=== PATIENT | male | born 1990 | race Caucasian/White ===

== ENCOUNTER 2022-01-29 10:55 | Emergency (ER) | payer SELFPAY | END 2022-01-29 13:20 | disposition left against medical advice (07) | LOC: ER1 10:55 | DX: T50.901A Poisoning by unspecified drugs, medicaments and biological substances, accidental (unintentional), initial encounter (principal); F17.200 Nicotine dependence, unspecified, uncomplicated; F19.11 Other psychoactive substance abuse, in remission | CPT/HCPCS: 71045; 93005; 96374; 99283; J2310 ==